=== PATIENT | female | born 1935 | race Caucasian/White ===

== ENCOUNTER 2021-11-21 18:15 | Emergency (ER) | payer MEDICARE, OTHER ==
[2021-11-21] MEDS ORDERED: Ondansetron 4 MG/2 ML SDV IVPUSH ONE (18:47)
[2021-11-21] MEDS ORDERED: Sodium Chloride 0.9% 1,000 ML IV ONE (18:47)
[2021-11-21] MEDS ORDERED: Iopamidol 755 Mg/ML 75 ML Bottle IVPUSH ONE (18:53)
[2021-11-21] MEDS ORDERED: Sodium Chloride 0.9% 50 ML IV SCH (19:00)
[2021-11-21 19:08] LABS: ANION GAP 11.2 mmol/L (5-15); CHLORIDE,CL 97 mmol/L (98-107); SODIUM,NA 134 mmol/L (136-145)
[2021-11-21 19:10] LABS: ESTIMATED GFR 56 mL/min (>=60)
== END 2021-11-21 20:40 ==
LOC: KA.ED 18:15
DX: K56.609 Unspecified intestinal obstruction, unspecified as to partial versus complete obstruction (principal); I48.91 Unspecified atrial fibrillation; E05.90 Thyrotoxicosis, unspecified without thyrotoxic crisis or storm; Z88.1 Allergy status to other antibiotic agents; Z88.5 Allergy status to narcotic agent; Z79.82 Long term (current) use of aspirin; Z79.899 Other long term (current) drug therapy
CPT/HCPCS: 36415; 74177; 80053; 81001; 83690; 85025; 86140; 96361; 96374; 99284; 99284-25; J2405; J7030; Q9967

== ENCOUNTER 2021-12-07 13:27 | Inpatient (IN) | payer MEDICARE, OTHER ==
[2021-12-07] MEDS ORDERED: oxyCODONE 5 MG Tab PO PRN (19:32)
[2021-12-07] MEDS ORDERED: Warfarin 5 MG Tab PO SCH (19:45)
[2021-12-07] MEDS ORDERED: Melatonin 3 MG Tab PO PRN (20:51)
[2021-12-07] MEDS: Acetaminophen 650 MG Tab.ER PO SCH (21:08)
[2021-12-07] MEDS: Ascorbic Acid 500 MG Tab PO SCH (21:08)
[2021-12-07] MEDS: Metoprolol Tartrate 50 MG Tab PO SCH (21:09)
[2021-12-07] MEDS: Vitamin B Complex Tab PO SCH (21:11)
[2021-12-07] MEDS: Calcium Citrate/Vitamin D3 315 MG-250 Unit Tab PO SCH (21:11)
[2021-12-08] MEDS: Multivitamins with Minerals/Iron/Folic Acid/Lycopene Tab PO SCH (08:38)
[2021-12-08] MEDS: Acetaminophen 650 MG Tab.ER PO SCH ×3 (08:39→22:18)
[2021-12-08] MEDS: Metoprolol Tartrate 50 MG Tab PO SCH ×2 (08:39→22:19)
[2021-12-08] MEDS: Ascorbic Acid 500 MG Tab PO SCH ×2 (08:40→22:18)
[2021-12-08] MEDS: Escitalopram 10 MG Tab PO SCH (08:40)
[2021-12-08] MEDS: Vitamin B Complex Tab PO SCH ×2 (08:40→22:18)
[2021-12-08] MEDS: PRAMOXINE TOP PRN (08:42)
[2021-12-08] MEDS: NEOMYCIN TOP PRN (08:42)
[2021-12-08] MEDS: POLYMYXIN B TOP PRN (08:42)
[2021-12-08] MEDS: Calcium Citrate/Vitamin D3 315 MG-250 Unit Tab PO SCH (22:18)
[2021-12-09 07:49] LABS: ANION GAP 11.7 mmol/L (5-15)
[2021-12-09] MEDS: Multivitamins with Minerals/Iron/Folic Acid/Lycopene Tab PO SCH (08:08)
[2021-12-09] MEDS: Vitamin B Complex Tab PO SCH ×2 (08:08→20:53)
[2021-12-09] MEDS: Ascorbic Acid 500 MG Tab PO SCH ×2 (08:08→20:53)
[2021-12-09] MEDS: Escitalopram 10 MG Tab PO SCH (08:08)
[2021-12-09] MEDS: Metoprolol Tartrate 50 MG Tab PO SCH ×2 (08:08→20:54)
[2021-12-09] MEDS: Acetaminophen 650 MG Tab.ER PO SCH ×3 (08:09→20:53)
[2021-12-09] MEDS ORDERED: Warfarin 2.5 MG Tab PO ONE (18:00)
[2021-12-09] MEDS: POLYMYXIN B TOP PRN (20:54)
[2021-12-09] MEDS: Amoxicillin/Clavulanate K 875-125 MG Tab PO SCH (20:54)
[2021-12-09] MEDS: PRAMOXINE TOP PRN (20:54)
[2021-12-09] MEDS: Calcium Citrate/Vitamin D3 315 MG-250 Unit Tab PO SCH (20:54)
[2021-12-09] MEDS: NEOMYCIN TOP PRN (20:54)
[2021-12-10] MEDS: Metoprolol Tartrate 50 MG Tab PO SCH ×2 (08:08→20:58)
[2021-12-10] MEDS: Escitalopram 10 MG Tab PO SCH (08:08)
[2021-12-10] MEDS: Ascorbic Acid 500 MG Tab PO SCH ×2 (08:08→20:56)
[2021-12-10] MEDS: Acetaminophen 650 MG Tab.ER PO SCH ×3 (08:09→20:57)
[2021-12-10] MEDS: Vitamin B Complex Tab PO SCH ×2 (08:09→20:57)
[2021-12-10] MEDS: Amoxicillin/Clavulanate K 875-125 MG Tab PO SCH ×2 (08:09→20:57)
[2021-12-10] MEDS: Multivitamins with Minerals/Iron/Folic Acid/Lycopene Tab PO SCH (08:09)
[2021-12-10] MEDS ORDERED: Warfarin 5 MG Tab PO ONE (18:00)
[2021-12-10] MEDS: Calcium Citrate/Vitamin D3 315 MG-250 Unit Tab PO SCH (20:56)
[2021-12-10] MEDS: POLYMYXIN B TOP PRN (23:20)
[2021-12-10] MEDS: PRAMOXINE TOP PRN (23:20)
[2021-12-10] MEDS: NEOMYCIN TOP PRN (23:20)
[2021-12-11] MEDS: Multivitamins with Minerals/Iron/Folic Acid/Lycopene Tab PO SCH (09:02)
[2021-12-11] MEDS: Acetaminophen 650 MG Tab.ER PO SCH ×3 (09:02→22:27)
[2021-12-11] MEDS: Metoprolol Tartrate 50 MG Tab PO SCH ×2 (09:02→22:27)
[2021-12-11] MEDS: Ascorbic Acid 500 MG Tab PO SCH ×2 (09:02→22:27)
[2021-12-11] MEDS: Escitalopram 10 MG Tab PO SCH (09:02)
[2021-12-11] MEDS: Amoxicillin/Clavulanate K 875-125 MG Tab PO SCH ×2 (09:03→22:26)
[2021-12-11] MEDS: Vitamin B Complex Tab PO SCH ×2 (09:03→22:28)
[2021-12-11] MEDS ORDERED: Warfarin 2.5 MG Tab PO ONE (18:00)
[2021-12-11] MEDS: NEOMYCIN TOP PRN (21:00)
[2021-12-11] MEDS: PRAMOXINE TOP PRN (21:00)
[2021-12-11] MEDS: POLYMYXIN B TOP PRN (21:00)
[2021-12-11] MEDS: Calcium Citrate/Vitamin D3 315 MG-250 Unit Tab PO SCH (22:25)
[2021-12-12 08:12] LABS: ANION GAP 9.3 mmol/L (5-15)
[2021-12-12] MEDS: Ascorbic Acid 500 MG Tab PO SCH ×2 (08:20→22:06)
[2021-12-12] MEDS: Acetaminophen 650 MG Tab.ER PO SCH ×3 (08:20→22:06)
[2021-12-12] MEDS: Escitalopram 10 MG Tab PO SCH (08:20)
[2021-12-12] MEDS: Amoxicillin/Clavulanate K 875-125 MG Tab PO SCH ×2 (08:20→22:06)
[2021-12-12] MEDS: Multivitamins with Minerals/Iron/Folic Acid/Lycopene Tab PO SCH (08:20)
[2021-12-12] MEDS: Vitamin B Complex Tab PO SCH ×2 (08:20→22:06)
[2021-12-12] MEDS: Metoprolol Tartrate 50 MG Tab PO SCH ×2 (08:21→22:06)
[2021-12-12] MEDS ORDERED: Warfarin 5 MG Tab PO ONE (18:00)
[2021-12-12] MEDS: Carboxymethylcellulose Sodium 0.5% Ophth Soln 15 ML Bottle EYEBOTH PRN (19:35)
[2021-12-12] MEDS: Calcium Citrate/Vitamin D3 315 MG-250 Unit Tab PO SCH (22:06)
[2021-12-12] MEDS: NEOMYCIN TOP PRN (22:09)
[2021-12-12] MEDS: PRAMOXINE TOP PRN (22:09)
[2021-12-12] MEDS: POLYMYXIN B TOP PRN (22:09)
[2021-12-13] MEDS: Acetaminophen 650 MG Tab.ER PO SCH ×3 (08:51→21:54)
[2021-12-13] MEDS: Escitalopram 10 MG Tab PO SCH (08:51)
[2021-12-13] MEDS: Amoxicillin/Clavulanate K 875-125 MG Tab PO SCH ×2 (08:51→21:55)
[2021-12-13] MEDS: Vitamin B Complex Tab PO SCH ×2 (08:52→21:54)
[2021-12-13] MEDS: Ascorbic Acid 500 MG Tab PO SCH ×2 (08:52→21:55)
[2021-12-13] MEDS: Metoprolol Tartrate 50 MG Tab PO SCH ×2 (08:52→21:55)
[2021-12-13] MEDS: Multivitamins with Minerals/Iron/Folic Acid/Lycopene Tab PO SCH (08:52)
[2021-12-13] MEDS ORDERED: Warfarin 5 MG Tab PO ONE (18:00)
[2021-12-13] MEDS: Carboxymethylcellulose Sodium 0.5% Ophth Soln 15 ML Bottle EYEBOTH PRN (21:53)
[2021-12-13] MEDS: POLYMYXIN B TOP PRN (21:53)
[2021-12-13] MEDS: NEOMYCIN TOP PRN (21:53)
[2021-12-13] MEDS: PRAMOXINE TOP PRN (21:53)
[2021-12-13] MEDS: Calcium Citrate/Vitamin D3 315 MG-250 Unit Tab PO SCH (21:55)
[2021-12-14] MEDS: Escitalopram 10 MG Tab PO SCH (08:43)
[2021-12-14] MEDS: Metoprolol Tartrate 50 MG Tab PO SCH ×2 (08:43→20:19)
[2021-12-14] MEDS: Vitamin B Complex Tab PO SCH ×2 (08:43→20:18)
[2021-12-14] MEDS: Amoxicillin/Clavulanate K 875-125 MG Tab PO SCH ×2 (08:43→20:19)
[2021-12-14] MEDS: Acetaminophen 650 MG Tab.ER PO SCH ×3 (08:43→20:18)
[2021-12-14] MEDS: Multivitamins with Minerals/Iron/Folic Acid/Lycopene Tab PO SCH (08:43)
[2021-12-14] MEDS: Ascorbic Acid 500 MG Tab PO SCH ×2 (08:43→20:19)
[2021-12-14] MEDS: NEOMYCIN TOP PRN (08:46)
[2021-12-14] MEDS: PRAMOXINE TOP PRN (08:46)
[2021-12-14] MEDS: POLYMYXIN B TOP PRN (08:46)
[2021-12-14] MEDS: Methotrexate 2.5 MG Tab PO SCH (08:56)
[2021-12-14] MEDS ORDERED: Warfarin 5 MG Tab PO ONE (18:00)
[2021-12-14] MEDS: Calcium Citrate/Vitamin D3 315 MG-250 Unit Tab PO SCH (20:17)
[2021-12-15 08:02] LABS: ANION GAP 10.4 mmol/L (5-15)
[2021-12-15] MEDS: Escitalopram 10 MG Tab PO SCH (08:46)
[2021-12-15] MEDS: Multivitamins with Minerals/Iron/Folic Acid/Lycopene Tab PO SCH (08:46)
[2021-12-15] MEDS: Vitamin B Complex Tab PO SCH ×2 (08:46→20:29)
[2021-12-15] MEDS: Acetaminophen 650 MG Tab.ER PO SCH ×3 (08:46→20:29)
[2021-12-15] MEDS: Amoxicillin/Clavulanate K 875-125 MG Tab PO SCH ×2 (08:46→20:29)
[2021-12-15] MEDS: Ascorbic Acid 500 MG Tab PO SCH ×2 (08:46→20:29)
[2021-12-15] MEDS: Metoprolol Tartrate 50 MG Tab PO SCH ×2 (08:50→20:34)
[2021-12-15] MEDS ORDERED: Warfarin 2.5 MG Tab PO ONE (18:00)
[2021-12-15] MEDS: Calcium Citrate/Vitamin D3 315 MG-250 Unit Tab PO SCH (20:29)
[2021-12-15] MEDS: ACETIC ACID 0.25% TOP SCH (20:35)
[2021-12-15] MEDS: POLYMYXIN B TOP PRN (20:37)
[2021-12-15] MEDS: PRAMOXINE TOP PRN (20:37)
[2021-12-15] MEDS: NEOMYCIN TOP PRN (20:37)
[2021-12-16] MEDS: Metoprolol Tartrate 50 MG Tab PO SCH ×2 (08:49→21:04)
[2021-12-16] MEDS: Vitamin B Complex Tab PO SCH ×2 (08:49→21:01)
[2021-12-16] MEDS: Ascorbic Acid 500 MG Tab PO SCH ×2 (08:49→21:01)
[2021-12-16] MEDS: Escitalopram 10 MG Tab PO SCH (08:49)
[2021-12-16] MEDS: Amoxicillin/Clavulanate K 875-125 MG Tab PO SCH ×2 (08:50→21:01)
[2021-12-16] MEDS: Acetaminophen 650 MG Tab.ER PO SCH ×3 (08:50→21:01)
[2021-12-16] MEDS: Multivitamins with Minerals/Iron/Folic Acid/Lycopene Tab PO SCH (08:50)
[2021-12-16] MEDS: ACETIC ACID 0.25% TOP SCH ×2 (08:51→21:03)
[2021-12-16] MEDS ORDERED: Warfarin 2.5 MG Tab PO ONE (18:00)
[2021-12-16] MEDS: Calcium Citrate/Vitamin D3 315 MG-250 Unit Tab PO SCH (21:01)
[2021-12-17] MEDS: Multivitamins with Minerals/Iron/Folic Acid/Lycopene Tab PO SCH (08:42)
[2021-12-17] MEDS: Acetaminophen 650 MG Tab.ER PO SCH ×3 (08:42→20:41)
[2021-12-17] MEDS: Amoxicillin/Clavulanate K 875-125 MG Tab PO SCH ×2 (08:44→20:41)
[2021-12-17] MEDS: Vitamin B Complex Tab PO SCH ×2 (08:45→20:41)
[2021-12-17] MEDS: Ascorbic Acid 500 MG Tab PO SCH ×2 (08:45→20:41)
[2021-12-17] MEDS: Escitalopram 10 MG Tab PO SCH (08:45)
[2021-12-17] MEDS: Metoprolol Tartrate 50 MG Tab PO SCH ×2 (08:45→20:42)
[2021-12-17] MEDS: ACETIC ACID 0.25% TOP SCH ×2 (08:50→20:43)
[2021-12-17] MEDS ORDERED: Warfarin 5 MG Tab PO ONE (18:00)
[2021-12-17] MEDS: Calcium Citrate/Vitamin D3 315 MG-250 Unit Tab PO SCH (20:41)
[2021-12-18] MEDS: Amoxicillin/Clavulanate K 875-125 MG Tab PO SCH ×2 (08:39→21:18)
[2021-12-18] MEDS: Multivitamins with Minerals/Iron/Folic Acid/Lycopene Tab PO SCH (08:39)
[2021-12-18] MEDS: Metoprolol Tartrate 50 MG Tab PO SCH ×2 (08:39→21:17)
[2021-12-18] MEDS: Vitamin B Complex Tab PO SCH ×2 (08:39→21:18)
[2021-12-18] MEDS: Acetaminophen 650 MG Tab.ER PO SCH ×3 (08:39→21:18)
[2021-12-18] MEDS: POLYMYXIN B TOP PRN (08:39)
[2021-12-18] MEDS: Ascorbic Acid 500 MG Tab PO SCH ×2 (08:39→21:18)
[2021-12-18] MEDS: PRAMOXINE TOP PRN (08:39)
[2021-12-18] MEDS: Escitalopram 10 MG Tab PO SCH (08:39)
[2021-12-18] MEDS: NEOMYCIN TOP PRN (08:39)
[2021-12-18] MEDS: ACETIC ACID 0.25% TOP SCH ×2 (10:07→21:20)
[2021-12-18] MEDS ORDERED: Warfarin 2.5 MG Tab PO ONE (18:00)
[2021-12-18] MEDS: Calcium Citrate/Vitamin D3 315 MG-250 Unit Tab PO SCH (21:17)
[2021-12-18] MEDS: Carboxymethylcellulose Sodium 0.5% Ophth Soln 15 ML Bottle EYEBOTH PRN (21:20)
[2021-12-19] MEDS: Metoprolol Tartrate 50 MG Tab PO SCH ×2 (08:36→20:08)
[2021-12-19] MEDS: Ascorbic Acid 500 MG Tab PO SCH ×2 (08:36→20:07)
[2021-12-19] MEDS: Multivitamins with Minerals/Iron/Folic Acid/Lycopene Tab PO SCH (08:36)
[2021-12-19] MEDS: Vitamin B Complex Tab PO SCH ×2 (08:36→20:07)
[2021-12-19] MEDS: Acetaminophen 650 MG Tab.ER PO SCH ×3 (08:36→20:08)
[2021-12-19] MEDS: Escitalopram 10 MG Tab PO SCH (08:36)
[2021-12-19] MEDS: Amoxicillin/Clavulanate K 875-125 MG Tab PO SCH ×2 (08:36→20:08)
[2021-12-19] MEDS: ACETIC ACID 0.25% TOP SCH ×2 (08:37→22:00)
[2021-12-19] MEDS ORDERED: Warfarin 2.5 MG Tab PO ONE (18:00)
[2021-12-19] MEDS: Calcium Citrate/Vitamin D3 315 MG-250 Unit Tab PO SCH (20:07)
[2021-12-19] MEDS: PRAMOXINE TOP PRN (20:09)
[2021-12-19] MEDS: NEOMYCIN TOP PRN (20:09)
[2021-12-19] MEDS: Carboxymethylcellulose Sodium 0.5% Ophth Soln 15 ML Bottle EYEBOTH PRN (20:09)
[2021-12-19] MEDS: POLYMYXIN B TOP PRN (20:09)
[2021-12-20] MEDS: Multivitamins with Minerals/Iron/Folic Acid/Lycopene Tab PO SCH (08:40)
[2021-12-20] MEDS: Acetaminophen 650 MG Tab.ER PO SCH ×3 (08:40→20:42)
[2021-12-20] MEDS: Ascorbic Acid 500 MG Tab PO SCH ×2 (08:40→20:42)
[2021-12-20] MEDS: Amoxicillin/Clavulanate K 875-125 MG Tab PO SCH ×2 (08:40→20:42)
[2021-12-20] MEDS: Escitalopram 10 MG Tab PO SCH (08:40)
[2021-12-20] MEDS: Vitamin B Complex Tab PO SCH ×2 (08:40→20:42)
[2021-12-20] MEDS: Metoprolol Tartrate 50 MG Tab PO SCH ×2 (08:40→20:43)
[2021-12-20] MEDS: ACETIC ACID 0.25% TOP SCH ×2 (08:42→21:02)
[2021-12-20] MEDS ORDERED: Warfarin 2.5 MG Tab PO ONE (18:00)
[2021-12-20] MEDS: Carboxymethylcellulose Sodium 0.5% Ophth Soln 15 ML Bottle EYEBOTH PRN (20:41)
[2021-12-20] MEDS: Calcium Citrate/Vitamin D3 315 MG-250 Unit Tab PO SCH (20:42)
[2021-12-23] MEDS ORDERED: Acetaminophen 650 MG Tab.ER ONE (15:54)
[2021-12-27] MEDS ORDERED: Warfarin 2.5 MG Tab ONE (18:01)
[2021-12-30] MEDS ORDERED: Warfarin 2.5 MG Tab ONE (18:38)
[2022-01-04] MEDS ORDERED: Warfarin 2.5 MG Tab ONE (20:47)
[2022-01-05] MEDS ORDERED: Warfarin 2.5 MG Tab PO ONE (18:00)
[2022-01-05] MEDS: Acetaminophen 650 MG Tab.ER PO SCH ×4 (20:08→20:32)
[2022-01-05] MEDS: Multivitamins with Minerals/Iron/Folic Acid/Lycopene Tab PO SCH ×2 (20:08→20:14)
[2022-01-05] MEDS: Escitalopram 10 MG Tab PO SCH ×2 (20:08→20:14)
[2022-01-05] MEDS: Metoprolol Tartrate 50 MG Tab PO SCH ×3 (20:08→20:32)
[2022-01-05] MEDS: Vitamin B Complex Tab PO SCH ×3 (20:09→20:33)
[2022-01-05] MEDS: Ascorbic Acid 500 MG Tab PO SCH ×3 (20:09→20:33)
[2022-01-05] MEDS: ACETIC ACID 0.25% TOP SCH ×2 (20:12→20:13)
[2022-01-05] MEDS: Amoxicillin/Clavulanate K 875-125 MG Tab PO SCH (20:12)
[2022-01-05] MEDS: Methotrexate 2.5 MG Tab PO SCH (20:13)
[2022-01-05] MEDS: Calcium Citrate/Vitamin D3 315 MG-250 Unit Tab PO SCH ×2 (20:13→20:33)
[2022-01-06] MEDS: Escitalopram 10 MG Tab PO SCH ×2 (08:31→08:44)
[2022-01-06] MEDS: Metoprolol Tartrate 50 MG Tab PO SCH ×3 (08:31→20:59)
[2022-01-06] MEDS: Acetaminophen 650 MG Tab.ER PO SCH ×5 (08:32→20:58)
[2022-01-06] MEDS: Vitamin B Complex Tab PO SCH ×3 (08:33→20:57)
[2022-01-06] MEDS: Ascorbic Acid 500 MG Tab PO SCH ×3 (08:34→20:59)
[2022-01-06] MEDS: Multivitamins with Minerals/Iron/Folic Acid/Lycopene Tab PO SCH ×2 (08:34→08:44)
[2022-01-06] MEDS ORDERED: Warfarin 5 MG Tab PO ONE (11:30)
[2022-01-06] MEDS: Calcium Citrate/Vitamin D3 315 MG-250 Unit Tab PO SCH (20:57)
[2022-01-07] MEDS: Escitalopram 10 MG Tab PO SCH ×2 (09:15→09:18)
[2022-01-07] MEDS: Ascorbic Acid 500 MG Tab PO SCH ×2 (09:15→09:19)
[2022-01-07] MEDS: Acetaminophen 650 MG Tab.ER PO SCH ×2 (09:15→09:18)
[2022-01-07] MEDS: Multivitamins with Minerals/Iron/Folic Acid/Lycopene Tab PO SCH ×2 (09:16→09:18)
[2022-01-07] MEDS: Metoprolol Tartrate 50 MG Tab PO SCH ×2 (09:16→09:18)
[2022-01-07] MEDS: Vitamin B Complex Tab PO SCH ×2 (09:16→09:18)
[2022-01-07 10:15] LABS: ANION GAP 12.3 mmol/L (5-15)
== END 2022-01-07 13:30 | disposition home or self-care (01) | DRG 948 ==
LOC: KA.MS 16:55
PROVIDERS: ADMIT Physician Assistant Medical; ATTEND Family Medicine
DX: R53.1 Weakness (principal); I48.19 Other persistent atrial fibrillation; J31.0 Chronic rhinitis; E04.2 Nontoxic multinodular goiter; D35.01 Benign neoplasm of right adrenal gland; E66.9 Obesity, unspecified; F41.9 Anxiety disorder, unspecified; M06.9 Rheumatoid arthritis, unspecified; M47.816 Spondylosis without myelopathy or radiculopathy, lumbar region; M85.88 Other specified disorders of bone density and structure, other site; G47.00 Insomnia, unspecified; H54.7 Unspecified visual loss; E78.00 Pure hypercholesterolemia, unspecified; I27.20 Pulmonary hypertension, unspecified; Z79.01 Long term (current) use of anticoagulants; Z88.1 Allergy status to other antibiotic agents; Z88.5 Allergy status to narcotic agent; Z68.31 Body mass index [BMI] 31.0-31.9, adult; Z79.899 Other long term (current) drug therapy; Z98.49 Cataract extraction status, unspecified eye; Z90.49 Acquired absence of other specified parts of digestive tract; Z90.710 Acquired absence of both cervix and uterus; Z96.653 Presence of artificial knee joint, bilateral; Z93.3 Colostomy status
CPT/HCPCS: 36415; 80048; 80053; 85025; 85610; 86140; 87070; 87075; 87186; 87205; 90662; 97110-GP; 97161-GP; A9270-GY; J8610

== ENCOUNTER 2024-01-05 11:31 | Inpatient (IN) | payer MEDICARE, OTHER ==
[2024-01-05] MEDS ORDERED: Meclizine 25 MG Tab PO PRN (13:23)
[2024-01-05] MEDS ORDERED: Ondansetron 4 MG Tab.DIS PO PRN (13:23)
[2024-01-05] MEDS ORDERED: Sodium Chloride 0.9% 10 ML Syringe FLUSH PRN (13:23)
[2024-01-05] MEDS ORDERED: Acetaminophen 325 MG Tab PO PRN (13:23)
[2024-01-05 13:38] LABS: INR 1.7 (0.9-1.1)
[2024-01-05] MEDS: Acetaminophen 650 MG Tab.ER PO SCH (15:50)
[2024-01-05] MEDS: Warfarin 5 MG Tab PO ONE (17:46)
[2024-01-05] MEDS: Metoprolol Tartrate 50 MG Tab PO SCH (20:30)
[2024-01-06 07:06] LABS: INR 1.7 (0.9-1.1)
[2024-01-06] MEDS: Escitalopram 10 MG Tab PO SCH (08:07)
[2024-01-06] MEDS: Warfarin 5 MG Tab PO ONE (18:24)
[2024-01-07 07:17] LABS: INR 1.8 (0.9-1.1)
[2024-01-07] MEDS: Warfarin 5 MG Tab PO SCH (17:22)
[2024-01-08 07:11] LABS: INR 2.1 (0.9-1.1)
[2024-01-08] MEDS: Warfarin 2.5 MG Tab PO ONE (17:19)
[2024-01-09 07:23] LABS: INR 2.5 (0.9-1.1)
== END 2024-01-09 14:15 | disposition home health service (06) | DRG 149 ==
LOC: KA.MS 11:35
PROVIDERS: ADMIT Internal Medicine; ATTEND Internal Medicine
DX: H81.10 Benign paroxysmal vertigo, unspecified ear (principal); R26.81 Unsteadiness on feet; R11.2 Nausea with vomiting, unspecified; I48.0 Paroxysmal atrial fibrillation; Z93.3 Colostomy status; Z79.01 Long term (current) use of anticoagulants; Z79.899 Other long term (current) drug therapy
CPT/HCPCS: 36416; 85610; A9270-GY

== ENCOUNTER 2024-12-05 16:58 | Emergency (ER) | payer MEDICARE, OTHER ==
[2024-12-05 17:28] LABS: BASOPHILS ABSOLUTE AUTO 0.02 10^3/uL (0.00-0.10); BASOPHILS PERCENT AUTO 0.2 % (0.0-1.0); EOSINOPHILS ABSOLUTE AUTO 0.22 10^3/uL (0.10-0.30); EOSINOPHILS PERCENT AUTO 2.5 % (1.0-3.0); IMMATURE GRAN ABSOLUTE AUTO 0.02 10^3/uL (0.00-0.04); IMMATURE GRAN PERCENT AUTO 0.2 % (0.0-0.4); LYMPHOCYTES ABSOLUTE AUTO 1.74 10^3/uL (1.00-4.00); LYMPHOCYTES PERCENT AUTO 19.5 % (20.0-40.0); MEAN PLATELET VOLUME 9.9 fL (7.4-10.4); MONOCYTES ABSOLUTE AUTO 0.52 10^3/uL (0.10-0.80); MONOCYTES PERCENT AUTO 5.8 % (2.0-8.0); NEUTROPHILS ABSOLUTE AUTO 6.39 10^3/uL (2.50-7.00); NEUTROPHILS PERCENT AUTO 71.8 % (50.0-70.0); PLATELET COUNT,PLT 198 10^3/uL (150-400); RED BLOOD CELL COUNT 4.07 10^6/uL (3.80-5.50); RED CELL DISTRIBUTION WIDTH 13.2 % (11.5-14.5); WHITE BLOOD CELL COUNT,WBC 8.91 10^3/uL (5.00-10.00)
[2024-12-05] MEDS: Ondansetron 4 MG/2 ML SDV IVPUSH ONE (17:29)
[2024-12-05 17:46] LABS: ALANINE AMINOTRANSFERASE,ALT 24 U/L (14-63); ASPARTATE AMNIOTRANSFERASE,AST 29 U/L (15-37); BILIRUBIN TOTAL 0.4 mg/dL (0.2-1.0); BLOOD UREA NITROGEN,BUN 11 mg/dL (7-18); CARBON DIOXIDE,CO2 28.0 mmol/L (21.0-32.0); CHLORIDE,CL 103 mmol/L (98-107); CREATININE 0.81 mg/dL (0.51-1.17); ESTIMATED GFR 70 mL/min (>=60); GLUCOSE RANDOM 111 mg/dL (70-140); POTASSIUM,K 3.5 mmol/L (3.5-5.1); PROTEIN TOTAL,TP 7.0 g/dL (6.4-8.2); SODIUM,NA 141 mmol/L (136-145)
== END 2024-12-05 18:50 | disposition home or self-care (01) ==
LOC: KA.ED 16:58
DX: R11.2 Nausea with vomiting, unspecified (principal); R53.1 Weakness; I11.0 Hypertensive heart disease with heart failure; I50.9 Heart failure, unspecified; E78.00 Pure hypercholesterolemia, unspecified; E66.9 Obesity, unspecified; Z88.8 Allergy status to other drugs, medicaments and biological substances; Z79.01 Long term (current) use of anticoagulants; Z79.899 Other long term (current) drug therapy; Z90.49 Acquired absence of other specified parts of digestive tract; Z90.710 Acquired absence of both cervix and uterus; Z68.32 Body mass index [BMI] 32.0-32.9, adult
CPT/HCPCS: 80053; 85025; 96361; 96374; 99284; 99284-25; J2405; J7030